=== PATIENT | male | born 1955 | race Caucasian/White ===

== ENCOUNTER 2017-12-09 12:45 | Observation (INO) | payer OTHER ==
--- NOTE | 2017-12-11 08:27 | PDHPUP ---
History & Physical Update H&P update statement: This history and physical update is based on an assessment of the patient which was completed after admission or registration (within 24 hours), but prior to the surgery/procedure. no changes H&P update: H&P reviewed & patient examined (no change), no change in patient's condition since H&P completed
[2017-12-11] MEDS ORDERED: LR 1,000 ML IV ONE (09:10)
[2017-12-11] MEDS ORDERED: LIDOCAINE 1% 2 ML INJ ID PRN (09:10)
[2017-12-11] MEDS ORDERED: BUPIVACAINE/EPI 0.5% 30 ML SDV ONE (09:30)
[2017-12-11] MEDS ORDERED: SURGIFLO MATRIX KIT WITH THROMBIN 8 ML TP ONE (09:31)
[2017-12-11] MEDS ORDERED: BACITRACIN 50,000 UNITS/10 ML SYR IRR ONE (09:31)
[2017-12-11] MEDS ORDERED: ceFAZolin 2 GM/DEXTROSE 100 ML IV ONE (09:53)
[2017-12-11] MEDS ORDERED: TRANEXAMIC ACID 1,000 MG in NS 100 ML IV ONE (09:53)
--- NOTE | 2017-12-11 10:05 | PDANEPAE ---
ANE History of Present Illness C5-6 radiculopathy, here for ACDF ANE Past Medical History - Cardiovascular History Hx Hypertension: Yes Hx Arrhythmias: No Hx Chest Pain: No Hx Coronary Artery / Peripheral Vascular Disease: No Hx CHF / Valvular Disease: No Hx Palpitations: No - Pulmonary History Hx COPD: No Hx Asthma/Reactive Airway Disease: No Hx Recent Upper Respiratory Infection: No Hx Oxygen in Use at Home: No Hx Sleep Apnea: No Sleep Apnea Screening Result - Last Documented: Negative - Neurologic History Hx Cerebrovascular Accident: No Hx Seizures: No Hx Dementia: No - Endocrine History Hx Diabetes: No Endocrine History Comment: HYPOTHYROID - Renal History Hx Renal Disorders: No Renal History Comment: KIDNEY STONES IN PAST - Liver History Hx Hepatic Disorders: No - Neurological & Psychiatric Hx Hx Neurological and Psychiatric Disorders: Yes Neurological / Psychiatric History Comment: ANXIETY - Cancer History Hx Cancer: No - Congenital Disorder History Hx Congenital Disorders: No - GI History Hx Gastrointestinal Disorders: No - Other Health History Other Health History: NEG - Chronic Pain History Chronic Pain: No - Surgical History Prior Surgeries: COLONOSCOPY ANE Review of Systems Review of Systems: - Exercise capacity METS (RN): 5 METS ANE Patient History - Allergies Allergies/Adverse Reactions: No Known Allergies Allergy (Verified 12/11/17 09:25) - Home Medications Home Medications: Aspirin EC [Aspirin EC 81 mg (*)] 81 mg PO DAILY 12/10/17 [Last Taken 12/10/17 07:00] Cholecalciferol Vit D3 [Vitamin D3 (*)] 2,000 units PO DAILY 12/10/17 [Last Taken 12/10/17 07:00] Levothyroxine [Synthroid 125 mcg (*)] 125 mcg PO DAILY06 12/10/17 [Last Taken 07:00] Lisinopril/Hctz 20/12.5MG [Zestoretic/Prinzide 20/12.5MG (*)] 0.5 ea PO HS 12/10 [Last Taken 12/10/17 21:00] Sertraline HCl [Zoloft 50mg (*)] 50 mg PO HS 12/10/17 [Last Taken 12/10/17 21:00 ] Simvastatin [Zocor] 40 mg PO HS 12/10/17 [Last Taken 12/10/17 21:00] traZODone [traZODONE 50MG (*)] 50 mg PO HS 12/10/17 [Last Taken 12/10/17 21:00] - NPO status NPO Status: no food or drink >8 hours NPO Since - Liquids (Date): 12/10/17 NPO Since - Liquids (Time): 20:30 NPO Since - Solids (Date): 12/10/17 NPO Since - Solids (Time): 20:30 - Anes Hx Anes Hx: no prior problems - Smoking Hx Smoking Status: Never smoked - Alcohol Use Alcohol Use: Rarely - Family Anes Hx Family Anes Hx: none Family Hx Anesthesia Complications: NEG ANE Labs/Vital Signs - Vital Signs Blood Pressure: 138/85 Heart Rate: 60 Respiratory Rate: 16 O2 Sat (%): 96 Height: 175.26 cm Weight: 82.554 kg ANE Physical Exam - Airway Neck exam: FROM Mallampati Score: Class 1 Mouth exam: normal dental/mouth exam - Pulmonary Pulmonary: no respiratory distress, clear to auscultation - Cardiovascular Cardiovascular: regular rate and rhythym, no murmur, rub, or gallop - ASA Status ASA Status: II ANE Anesthesia Plan Anesthesia Plan: general endotracheal anesthesia Total IV Anesthesia: Yes
[2017-12-11] MEDS ORDERED: MIDAZOLAM 2 MG/2 ML VIAL IVP ONE (10:06)
[2017-12-11] MEDS ORDERED: fentaNYL 100 MCG/2 ML INJ ONE ×3 (10:15→12:50)
[2017-12-11] MEDS ORDERED: PROPOFOL/EMULSION 500 MG/50 ML BOTTLE IV ONE (10:15)
[2017-12-11] MEDS ORDERED: REMIFENTANIL HCL 1 MG VIAL ONE (10:15)
[2017-12-11] MEDS ORDERED: PROPOFOL 200 MG/20 ML VIAL ONE (10:15)
[2017-12-11] MEDS ORDERED: ROCURONIUM 50 MG/5 ML VIAL ONE (10:16)
[2017-12-11] MEDS ORDERED: LIDOCAINE 2% 100 MG/5 ML SYR ONE (10:16)
[2017-12-11] MEDS ORDERED: ePHEDrine SULFATE 25 MG/5 ML SYR ONE (11:11)
[2017-12-11] MEDS ORDERED: ONDANSETRON 4 MG/2 ML VIAL ONE (11:23)
[2017-12-11] MEDS ORDERED: DEXAMETHASONE 4 MG/ML VIAL ONE (11:23)
[2017-12-11] MEDS ORDERED: NALOXONE HCL 0.4 MG/ML INJ IVP PRN ×2 (12:38→12:51)
[2017-12-11] MEDS ORDERED: ACETAMINOPHEN 500 MG TAB PO PRN (12:38)
[2017-12-11] MEDS ORDERED: ONDANSETRON 4 MG/2 ML VIAL IVP PRN ×2 (12:38→12:40)
[2017-12-11] MEDS ORDERED: HYDROCODONE/APAP 5/325 TAB PO PRN (12:38)
[2017-12-11] MEDS ORDERED: PROMETHAZINE HCL 25 MG/ML INJ IVP PRN (12:38)
[2017-12-11] MEDS ORDERED: oxyCODONE IR 5 MG TAB PO PRN ×2 (12:38→12:40)
--- NOTE | 2017-12-11 12:39 | SUROPNOTE ---
[facility] Operative Report - Surgery Date: 12/11/17 Pre-operative Diagnosis: Cervical Degenerative Disc Disease Cervical Stenosis Cervical spondylotic myelopathy Post-operative Diagnosis: Same Procedure: C5/6 Anterior Cervical Discectomy and Fusion with Instrumentation Structural use of morselized local autograft bone Structural use of allograft Use of intra-operative fluoroscopy Use of intra-operative neuromonitoring, including EMG, MEP, and SSEP modalities Use of a surgical microscope Surgeon: Regis Reyes MD Grade Recorder: Rob sAhley CSA Anesthesia: General endotracheal anesthesia Findings: As expected degenerative disc disease and stenosis Estimated Blood Loss: 50mL Drains: Hemovac Specimens: None Complications: None Condition: Transferred to PACU in stable condition. Implants: DePuy Plate: 14mm Screws: 16mm x 4 Interbody Graft: size 5mm Bengal cage, used structurally in the disc space Allograft: 1mL putty used within the disc space Autograft: local bone from end plate preparation used structurally in the interbody cage. Indications: The patient was seen in my office and diagnosed with cervical degenerative disc disease, cervical stenosis, and cervical spondylotic myelopathy. I have explained all options of treatment for the patient, and the patient has elected to proceed with operative management. I have explained all risks, benefits, and alternatives of the proposed procedure. The risks that we have discussed include , blindness, bleeding, nerve damage, infection, dural tear, failure of surgery to alleviate pre-operative symptoms, nonunion, and possible need for further operation. I also discussed in detail the possibility of dysphagia, superior laryngeal and/or hypoglossal nerve injury, carotid or vertebral artery damage, Horners syndrome, C5 palsy specifically, and paralysis. I have described the surgical procedure using an acrylic model. I explained separately the risks of allograft, including infection and disease transfer. In addition to the aforementioned procedure, I discussed with the patient that other procedures may be indicated during the course of surgery. The patient expressed understanding of this and agreed to move forward with operative management. Pre-surgical: The proposed incision site was marked in the pre-operative holding area by me. The patient was then taken to the operating room in stable condition. Following smooth induction of general anesthesia, the patient was positioned supine on a Hernan table with all down surfaces well-padded. A small towel was placed between the scapulae and the neck was placed in slight extension with the head resting on a donut pillow. The patient was then prepped and draped in the usual sterile fashion. Pre-operative antibiotics and tranexamic acid were administered within one hour of the incision. A surgical timeout was performed, and all parties involved in the procedure were in agreement on the correct patient, location, and procedure to be performed. Approach: The proposed C5 and C6 levels were identified using C-arm fluoroscopy and the skin was marked for the proposed incision. Based on anatomy and pathology, a left-sided approach was taken. A natural skin fold was selected near the proposed incision site to allow for optimal cosmesis, reaching from the medial border of the sternocleidomastoid to near midline. The skin was then incised sharply through the dermis. Bipolar cautery was used to dissect the subdermal fat layer down to the platysma and to coagulate bleeding vessels. A small rent was created in the platysma and the muscle was spread in line with the fibers. A Metzenbaum scissors was used to spread soft tissues in a plane just deep to the platysma. Using a forceps, the layer just deep to the platysma was defined further using a Metzenbaum scissors as a dissector. A self-retractor was then placed to allow for further visualization. The medial border of the sternocleidomastoid muscle was identified and retracted laterally. The carotid sheath was identified and retracted laterally. The strap muscles and midline structures were retracted medially, and any crossing vessels were coagulated or tied off with 3-0 silk suture, depending on their caliber and location in relation to the anticipated fusion levels. The pretracheal fascia and longus colli muscles were then identified. Secondary pause and retraction: An 18-gauge spinal needle was then bent twice to allow the terminal 1cm of the needle to be inserted safely into a vertebra. The needle was inserted into the center of a vertebral body within the operative field. A lateral radiograph was taken for identification purposes. A secondary spinal pause was then performed , and the level was confirmed with all parties participating in the operation. Once confirmed, the needle was removed and the vertebra was marked using electrocautery. A cervical self-retracting system was selected with appropriate depth and placed into the surgical field. Care was taken to retract and protect all areas of the esophagus without placing undue pressure for an extended period of time. The endotracheal cuff was then deflated and re-inflated to a lower pressure until tracheal retraction was removed. Disc preparation: The longus colli muscles were then gently elevated using a periosteal elevator on either side to allow for disc preparation. Small vessels were coagulated using bipolar cautery. A [place] pin was then placed in each vertebral body above and below the disc space to be fused. Anterior osteophytes were removed using a [place]ell rongeur. A [place] pin distractor was then applied to both and gently distracted. A disc knife was then used to incise the anterior annulus, using the uncinated process as both a lateral border to dissection and protection for the vertebral artery. The annulus and underlying nucleus was removed using curettes a disc punch. The posterior longitudinal ligament was then identified and removed from the posterior vertebral bodies using Kerrison rongeurs. A curved curette was used to remove any posterior osteophytes that could be palpated. Pedicles of the caudal level were identified and a cervical Esteban ball was used to palpate the foraminae. Using the uncinates as landmarks , a high-speed echo was used to remove any remaining cartilage from the endplates create an adequate box in the disc space for interbody cage placement. Once adequate decompression and interspace preparation was achieved, attention was turned toward implant placement. Implant placement: Trial implants used for sizing were introduced into the prepared disc space in a sequential fashion. Once the appropriate size trial implant was selected, the trial was removed. Autograft bone was collected from the burring process and used for fusion. Based on the trial implant, the same size final implant was packed with local autograft bone and gently tamped into place. The [place] pin distractor and [place] pins were then removed. Anterior cervical plates were trialed and the appropriate size plate was applied across the disc space to be fused. Based on pre-surgical templating, employee development specialist holes were drilled through the plate and into the vertebral bodies in an appropriate trajectory for the anticipated screws. Based on pre-surgical templating of the anterior-to- posterior length of the vertebral body, the appropriate screw sizes were selected. Screws were then placed in star-pattern, and the secondary locking mechanism was tightened using a torque-limited screwdriver. Retractor removal: The superior laryngeal nerve and hypoglossal nerve were intentionally not visualized during the operation. The esophagus was inspected carefully while all retractors were removed, and there was no sign of injury or damage to the esophagus. Closure: The surgical field was then copiously irrigated with sterile saline. One gram of vancomycin powder was then applied to the surgical field. A small drain was placed deep to the platysma and brought out of the skin laterally, in line with the incision. The drain was then sewn to skin. 2-0 interrupted sutures were used to repair the platysma. A separate 2-0 monofilament suture was then used to approximate the subdermal tissues, and the subcutaneous layer was repaired with a 3-0 monofilament in a running fashion. All sutures used were absorbable. Topical adhesive was then applied to the skin and allowed to dry. A sterile island dressing was applied over the surgical incision. A surgical count was performed before initiation of closure and following the procedure, and all were correct. I was present for the entire procedure. Surgical microscope use: A surgical microscope was utilized throughout the decompressive portion of this case. This was deemed necessary for safe and accurate surgical decompression of affected nerve roots. Neuromonitoring: SSEP, MEP and EMG were used throughout the case from incision until the beginning of closure. There were no significant changes throughout the case, and SSEP signals were at their pre-surgical baseline levels before surgical closure was initiated. Due to the patients pre-existing myelopathy, pre- positioning MEPs were monitored before incision and throughout the case. engineering assistant: A surgical product sales consultant was used throughout the case, and deemed necessary for safe neural retraction, hemostasis, and suction. Recovery: The patient was extubated uneventfully in the operating room. The patient was taken to the recovery room in stable condition. Sequential compression devices for VTE prophylaxis were applied to the patients lower extremities, and were ordered to be used while the patient was non-ambulatory. Chemical VTE prophylaxis was considered to be contraindicated for this patient because of the risk of bleeding near the epidural space. Jose Miguel Reyes MD
--- NOTE | 2017-12-11 12:39 | POSTANESTH ---
Post Anesthetic Evaluation Cardiovascular Status: Normal, Stable, Similar to Pre-Op Cond Respiratory Status: Normal, Stable, Similar to Pre-op Cond. Level of Consciousness/Mental Status: Can Participate in Eval, Alert and Oriented Pain Control: Adequate, Prn Tx Ordered Nausea/Vomiting Control: Adequate, Prn Tx Ordered Complications Possibly Related to Anesthesia: None Noted
[2017-12-11] MEDS ORDERED: POLYETHYLENE GLYCOL 3350 17 GM PKT PO PRN (12:40)
[2017-12-11] MEDS ORDERED: HYDROmorphONE/DILAUDID 1 MG/ML INJ IVP PRN (12:40)
[2017-12-11] MEDS ORDERED: MAGNESIUM HYDROXIDE 30 ML UDCUP PO PRN (12:40)
[2017-12-11] MEDS ORDERED: BISACODYL 10 MG SUPP PR PRN (12:40)
[2017-12-11] MEDS ORDERED: diphenhydrAMINE 25 MG CAP PO PRN (12:40)
[2017-12-11] MEDS ORDERED: ONDANSETRON DISINTEGRATING 4 MG TAB PO PRN (12:40)
[2017-12-11] MEDS ORDERED: LACTULOSE 20 GM/30 ML UDCUP PO PRN (12:40)
[2017-12-11] MEDS ORDERED: DIAZEPAM 5 MG/ML 1 ML SYR IVP PRN (12:51)
[2017-12-11] MEDS ORDERED: DIAZEPAM 5 MG/ML 1 ML SYR ONE (12:53)
[2017-12-11] MEDS: fentaNYL 100 MCG/2 ML INJ IVP PRN ×2 (12:53→13:08)
[2017-12-11] MEDS ORDERED: HYDROmorphONE/DILAUDID 1 MG/ML INJ ONE (13:17)
[2017-12-11] MEDS: HYDROmorphONE/DILAUDID 1 MG/ML INJ IVP PRN ×2 (13:19→13:25)
[2017-12-11] MEDS ORDERED: ceFAZolin 2 GM/DEXTROSE 100 ML IV SCH (14:00)
[2017-12-11] MEDS ORDERED: GABAPENTIN 300 MG CAP PO SCH (14:00)
[2017-12-11] MEDS ORDERED: ACETAMINOPHEN 500 MG TAB PO SCH (14:00)
[2017-12-11] MEDS ORDERED: METHOCARBAMOL 750 MG TAB PO PRN (14:41)
[2017-12-11] MEDS ORDERED: DIAZEPAM 5 MG TAB PO PRN (15:31)
[2017-12-11 16:50] VITALS: BP 129/79
[2017-12-11] MEDS ORDERED: FAMOTIDINE 20 MG TAB PO SCH (21:00)
[2017-12-11] MEDS ORDERED: SENNOSIDES/DOCUSATE SODIUM TAB PO SCH (21:00)
--- NOTE | 2017-12-18 17:08 | GDS ---
Chris underwent an uneventful C5-6 ACDF on December 11, 2017. He was discharged the same day. His drain was discontinued. His pain was well controlled on an oral regimen. He progressed with physica l therapy and was cleared for discharged by all parties involved. The patient was given a discharge packet before surgery with all necessary instructions. He has been given medication as a narcotic, as well as a muscle relaxer for pain control. He will see me in the office in 2 weeks, and all further instructions are in the packet. He also has my cell phone if he has any further questions or concerns. /[id number]/MODL
== END 2017-12-11 18:45 | disposition home or self-care (01) ==
LOC: F3N 12-11 08:45
PROVIDERS: ADMIT Orthopaedic Surgery Orthopaedic Surgery of the Spine; ATTEND Orthopaedic Surgery Orthopaedic Surgery of the Spine
PROC: 0RB30ZZ Excision of Cervical Vertebral Disc, Open Approach (ICD-10-PCS; principal; 2017-12-11 10:30)
PROC: B01B1ZZ Fluoroscopy of Spinal Cord using Low Osmolar Contrast (ICD-10-PCS; principal; 2017-12-11 10:30)
PROC: 0RG10A0 Fusion of Cervical Vertebral Joint with Interbody Fusion Device, Anterior Approach, Anterior Column, Open Approach (ICD-10-PCS; principal; 2017-12-11 10:30)
PROC: 4A11X4G Monitoring of Peripheral Nervous Electrical Activity, Intraoperative, External Approach (ICD-10-PCS; principal; 2017-12-11 10:30)
PROC: 8E0WXBZ Computer Assisted Procedure of Trunk Region (ICD-10-PCS; principal; 2017-12-11 10:30)
DX: M50.022 Cervical disc disorder at C5-C6 level with myelopathy (principal); M48.02 Spinal stenosis, cervical region; E03.9 Hypothyroidism, unspecified
CPT/HCPCS: 22551; 76001; G0378; C1713; J0690; J1100; J1170; J2001; J2250; J2405; J2704; J3010; J3360